=== PATIENT | male | born 1955 | race Caucasian/White ===

== ENCOUNTER → 2021-06-24 10:44 | Outpatient (CLI) | payer MEDICARE, OTHER, SELFPAY ==
[2021-06-24 11:23] LABS: Add Manual Diff / Slide Review NO; Basophils Absolute Auto 100 /uL (0-100); Basophils Percent Auto 1.2 % (0-2); Eosinophils Absolute Auto 400 /uL (0-450); Eosinophils Percent Auto 4.7 % (2-4); Hematocrit 43.2 % (41-53); Hemoglobin 14.4 g/dL (13.5-17.5); Lymphocytes Absolute Auto 2400 /uL (1100-4500); Lymphocytes Percent Auto 32.2 % (25-40); Mean Corpuscular HGB Conc 33.4 % (30-36); Mean Corpuscular Hemoglobin 26.9 PG (26-34); Mean Corpuscular Volume 80.7 fL (80-100); Monocytes Absolute Auto 500 /uL (0-900); Monocytes Percent Auto 7.3 % (3-14); Neutrophils Absolute Auto 4100 /uL (1500-7000); Neutrophils Percent Auto 54.6 % (50-75); Platelet Count 233 X10^3/uL (150-400); Red Blood Cell Count 5.36 X10^6/uL (4.5-5.9); White Blood Cell Count 7.6 X10^3/uL (4.5-11.0)
[2021-06-24 11:38] LABS: Hemoglobin A1C% w Est Avg Glu 9.4 % (4.0-6.0)
[2021-06-24 11:54] LABS: Alanine Aminotransferase 104 IU/L (<50); Albumin 4.4 g/dL (3.5-5.0); Albumin Globulin Ratio 1.7 (1.0-2.8); Alkaline Phosphatase 93 U/L (38-126); Aspartate Aminotransferase 65 IU/L (17-59); BUN Creatinine Ratio 16.4 (6-22); Bilirubin Total 0.7 mg/dL (0.2-1.3); Blood Urea Nitrogen 11 mg/dL (9-20); C-Reactive Protein Quant 1.9 mg/dL (<1.0); Calcium 9.6 mg/dL (8.4-10.2); Carbon Dioxide 27 mmol/L (22-32); Chloride 100 mmol/L (98-107); Cholesterol 261 mg/dL (140-199); Estimated Glomerular Filt Rate > 60.0 mL/min (>60); Globulin 2.6 g/dL (1.7-4.1); Glucose 253 mg/dL (80-110); HDL Cholesterol 50 mg/dL (40-60); HEMOLYSIS < 15 (0-50); LDL Cholesterol Calculated 132 mg/dL (<100); Potassium 4.1 mmol/L (3.4-5.1); Sodium 136 mmol/L (137-145); Triglycerides 395 mg/dL (35-150)
[2021-06-24 12:12] LABS: Free T4, Direct Thyroxine 1.26 ng/dL (0.78-2.19)
[2021-06-24 12:22] LABS: Prostate Specific Antigen Scrn 0.469 ng/mL (0.1-4.0)
[2021-06-24 12:26] LABS: Thyroid Stimulating Hormone 4.61 uIU/mL (0.47-4.68)
[2021-06-24 12:47] LABS: Erythrocyte Sedimentation Rate 17 MM/HR (0-15)
== END ==
PROVIDERS: PCP Internal Medicine; Referring Provider Internal Medicine; Visit Provider Internal Medicine
DX: E11.9 Type 2 diabetes mellitus without complications (principal); Z12.5 Encounter for screening for malignant neoplasm of prostate; I10 Essential (primary) hypertension; R59.1 Generalized enlarged lymph nodes
CPT/HCPCS: 36415; 80053; 80061; 83036; 84439; 84443; 85025; 85651; 86140; G0103

== ENCOUNTER → 2021-07-28 12:07 | Outpatient (CLI) | payer MEDICARE, OTHER, SELFPAY ==
[2021-07-28 14:05] LABS: COVID19 -Nasal RAPID Negative (Negative)
== END ==
PROVIDERS: PCP Internal Medicine; Visit Provider Physician Assistant
DX: Z20.822 Contact with and (suspected) exposure to COVID-19 (principal); R50.9 Fever, unspecified; R52 Pain, unspecified
CPT/HCPCS: 87635

== ENCOUNTER → 2021-08-20 13:38 | Outpatient (CLI) | payer MEDICARE, OTHER, SELFPAY ==
[2021-08-20 14:39] LABS: Hemoglobin A1C% w Est Avg Glu 8.6 % (4.0-6.0)
[2021-08-20 14:43] LABS: BUN Creatinine Ratio 16.5 (6-22); Blood Urea Nitrogen 13 mg/dL (9-20); Calcium 9.9 mg/dL (8.4-10.2); Carbon Dioxide 26 mmol/L (22-32); Chloride 100 mmol/L (98-107); Estimated Glomerular Filt Rate > 60.0 mL/min (>60); Glucose 255 mg/dL (80-110); HEMOLYSIS < 15 (0-50); Potassium 4.2 mmol/L (3.4-5.1); Sodium 137 mmol/L (137-145)
== END ==
PROVIDERS: PCP Internal Medicine; Referring Provider Internal Medicine; Visit Provider Internal Medicine
DX: E11.65 Type 2 diabetes mellitus with hyperglycemia (principal)
CPT/HCPCS: 36415; 80048; 83036

== ENCOUNTER → 2021-10-08 07:40 | Outpatient (CLI) | payer MEDICARE, OTHER, SELFPAY ==
[2021-10-08 08:46] LABS: BUN Creatinine Ratio 18.2 (6-22); Blood Urea Nitrogen 14 mg/dL (9-20); Calcium 9.4 mg/dL (8.4-10.2); Carbon Dioxide 24 mmol/L (22-32); Chloride 99 mmol/L (98-107); Estimated Glomerular Filt Rate > 60.0 mL/min (>60); Glucose 153 mg/dL (80-110); HEMOLYSIS 34 (0-50); Potassium 4.3 mmol/L (3.4-5.1); Sodium 135 mmol/L (137-145)
== END ==
PROVIDERS: PCP Internal Medicine; Referring Provider Internal Medicine; Visit Provider Internal Medicine
DX: E11.9 Type 2 diabetes mellitus without complications (principal); I10 Essential (primary) hypertension
CPT/HCPCS: 36415; 80048; 83036

== ENCOUNTER → 2022-01-06 11:38 | Outpatient (CLI) | payer MEDICARE, OTHER, SELFPAY ==
[2022-01-06 12:26] LABS: Blood Urea Nitrogen 16 mg/dL (9-20); Calcium 9.3 mg/dL (8.4-10.2); Carbon Dioxide 22 mmol/L (22-32); Chloride 103 mmol/L (98-107); Estimated Glomerular Filt Rate > 60 mL/min (>60); Glucose 156 mg/dL (80-110); HEMOLYSIS < 15 (0-50); Potassium 4.3 mmol/L (3.4-5.1); Sodium 137 mmol/L (137-145)
[2022-01-06 12:51] LABS: Hemoglobin A1C% w Est Avg Glu 6.7 % (4.0-6.0)
== END ==
PROVIDERS: PCP Internal Medicine; Referring Provider Internal Medicine; Visit Provider Internal Medicine
DX: E11.9 Type 2 diabetes mellitus without complications (principal); I10 Essential (primary) hypertension
CPT/HCPCS: 36415; 80048; 83036

== ENCOUNTER → 2022-04-07 11:09 | Outpatient (CLI) | payer MEDICARE, OTHER, SELFPAY ==
[2022-04-07 13:15] LABS: Hemoglobin A1C% w Est Avg Glu 6.5 % (4.0-6.0)
[2022-04-07 13:29] LABS: BUN Creatinine Ratio 16.3 (6-22); Blood Urea Nitrogen 15 mg/dL (9-20); Calcium 9.2 mg/dL (8.4-10.2); Carbon Dioxide 27 mmol/L (22-32); Chloride 101 mmol/L (98-107); Estimated Glomerular Filt Rate > 60 mL/min (>60); Glucose 130 mg/dL (80-110); HEMOLYSIS < 15 (0-50); Potassium 4.1 mmol/L (3.4-5.1); Sodium 139 mmol/L (137-145)
== END ==
PROVIDERS: PCP Internal Medicine; Referring Provider Internal Medicine; Visit Provider Internal Medicine
DX: I10 Essential (primary) hypertension (principal); E11.9 Type 2 diabetes mellitus without complications
CPT/HCPCS: 36415; 80048; 83036

== ENCOUNTER → 2022-05-16 14:08 | Outpatient (CLI) | payer MEDICARE, OTHER, SELFPAY ==
[2022-05-16 15:03] LABS: BUN Creatinine Ratio 16.3 (6-22); Blood Urea Nitrogen 13 mg/dL (9-20); Calcium 9.2 mg/dL (8.4-10.2); Carbon Dioxide 26 mmol/L (22-32); Chloride 98 mmol/L (98-107); Estimated Glomerular Filt Rate > 60 mL/min (>60); Glucose 193 mg/dL (80-110); HEMOLYSIS < 15 (0-50); Potassium 3.5 mmol/L (3.4-5.1); Sodium 135 mmol/L (137-145)
== END ==
PROVIDERS: PCP Internal Medicine; Referring Provider Internal Medicine; Visit Provider Internal Medicine
DX: I10 Essential (primary) hypertension (principal)
CPT/HCPCS: 36415; 80048

== ENCOUNTER → 2022-05-19 14:42 | Outpatient (CLI) | payer MEDICARE, OTHER, SELFPAY ==
[2022-05-19 15:29] LABS: COVID19 -Nasal RAPID Negative (Negative)
== END ==
PROVIDERS: PCP Internal Medicine; Referring Provider Internal Medicine; Visit Provider Internal Medicine
DX: Z20.822 Contact with and (suspected) exposure to COVID-19 (principal)
CPT/HCPCS: 87635; C9803

== ENCOUNTER → 2022-05-20 13:18 | Outpatient (CLI) | payer MEDICARE, OTHER, SELFPAY ==
--- NOTE | 2022-05-25 09:14 | PM.PFT.1 ---
Pulmonary Function Test Referral & Results Date Patient Seen: 05/20/22 Requesting provider: Kurtis Jennings Results: The spirometry demonstrates an FVC of 2.59 L which is 72% of predicted. The FEV1 was measured at 2.17 L which is 81% of predicted. The FEV1/FVC ratio was 84 which is 113% of predicted. Following the administration of bronchodilator there was no appreciable change. Lung volumes show an SVC of 2.72 L which is 72% of predicted. The diffusing capacity was measured at 26.97 which is 111% of predicted. The maximum voluntary ventilation was normal Interpretation: This study demonstrates possibly very mild obstructive lung disease based on minimal reduction FEV1 although FEV1/FVC ratio is preserved and shape a flow volume loop fails to demonstrate any significant obstructive lung disease and there is no benefit following bronchodilator Lung volumes are minimally reduced suggesting very mild restrictive lung disease which probably explains the abnormality in the FEV1 above Diffusing capacity is normal Clinical correlation suggested
== END ==
PROVIDERS: PCP Internal Medicine; Referring Provider Internal Medicine; Visit Provider Internal Medicine
DX: R06.02 Shortness of breath (principal); Z87.891 Personal history of nicotine dependence; J98.8 Other specified respiratory disorders
CPT/HCPCS: 94060; 94726; 94729

== ENCOUNTER → 2022-06-16 10:35 | Outpatient (CLI) | payer MEDICARE, OTHER, SELFPAY ==
--- NOTE | 2022-06-16 10:37 | DI.NM.S_ITS ---
PROCEDURE: NM AKI PERF SPECT R&S PHARM Rest and pharmacological stress myocardial perfusion SPECT with gated imaging and ejection fraction RADIOPHARMACEUTICAL: 25.8 mCi Tc-99m tetrafosmin IV at rest and 25.0 mCi Tc-99m tetrafosmin IV at peak effect of pharmacological stress. [id number] was performed. INDICATIONS: Shortness of Breath TECHNIQUE: Radiopharmaceutical was injected at peak stress test, and also at rest. SPECT images were obtained. SPECT myocardial perfusion images were displayed in short axis, horizontal long axis, and vertical long axis views. Gated images were reviewed using [employer] software. COMPARISON: None. CARDIAC STRESS: A pharmacologic stress test was performed under the supervision of an attending staff, using an infusion of regadenoson. Hemodynamic data: There is normal blood pressure and heart rate response to pharmacologic stress. Symptoms: None reported. EKG: Unable to assess for diagnostic changes of ischemia with pharmacologic stress. FINDINGS: Raw data: There is good myocardial uptake of radiotracer. No significant motion artifacts. Djin-rt-jxulj ratio is 0.28 (normal is less than 0.38 for tetrafosmin tracer). Left ventricle function: Gated images demonstrate hypokinesis of the basal to mid inferior wall. No segmental wall motion abnormalities. No transient ischemic dilation; TID is 1.14 (normal less than 1.3). Left ventricle resting end diastolic volume is 111 mL. Left ventricle stress ejection fraction is 63%; normal range is above 45%. Myocardial perfusion: There is a large size, moderate to severe intensity mostly fixed inferior wall defect however there is some reversibility in the inferoapex. IMPRESSION: Abnormal study. Large size, moderate to severe intensity mostly fixed inferior wall defect does demonstrate some reversibility in the inferoapical region suggesting santana-infarct ischemia. There is associated inferior wall hypokinesis. Normal calculated left ventricular ejection fraction. Dictated by: Lety Carbone D.O. on 06/17/2022 at 16:02 Approved by: Lety Carbone D.O. on 06/17/2022 at 16:13
[2022-06-16 13:14] LABS: COVID19 -Nasal RAPID Negative (Negative)
--- NOTE | 2022-06-17 14:19 | PM.TREADMILL ---
Cardiac Stress Test Report Referral & Results Date Patient Seen: 06/17/22 Requesting provider: Kurtis Jennings Indication: Dyspnea with exertion Rest ECG: Unremarkable Procedure Note: After both written and verbal informed consent the patient had an IV started by the diagnostic imaging RN, and then was hooked up to the treadmill monitoring system. The Lexiscan material, and then the Cardiolite tracer, were administered sequentially. An additional 3 min was spent monitoring the patient while supine on the gurney. The patient had a normal response to all infused materials. Impression: Patient had normal response to infused materials as above, please see perfusion imaging report for details regarding possible ischemia Please note: Actual ECG tracings can be found in the PACS system.
== END ==
PROVIDERS: PCP Internal Medicine; Referring Provider Internal Medicine; Visit Provider Internal Medicine
DX: R94.39 Abnormal result of other cardiovascular function study (principal); R06.02 Shortness of breath; R06.00 Dyspnea, unspecified; Z20.822 Contact with and (suspected) exposure to COVID-19
CPT/HCPCS: 78452; 87635; 93017; A9502; J2785

== ENCOUNTER → 2022-06-30 12:19 | Outpatient (CLI) | payer MEDICARE, OTHER, SELFPAY ==
--- NOTE | 2022-06-30 12:20 | DI.ECHO.S_ITS ---
[facility] +---------+ : : [address] [place] : : : : [id number] : : : : Phone: [phone]---------+ Echocardiogram Report + + :Name: DANITZA THOMAS Study Date: 06/30/2022 Height: 63.5 in: :[facility] ReadingLocation: Weight: 270 lb : : Gender: Male BSA: 2.2 m2 : :: 1955 Age: 67 yrs BP: 152/84 mmHg: :Reason For Study: CORONARY ARTERY DISEASE : :Ordering Physician: PHILIP, : :ELDA Johnson Performed By: Josephine Graham : :Referring: ELDA PALACIOS : + + Interpretation Summary 1) Normal left ventricular thickness, size, wall motion, and systolic function (EF 60-65%). 2) Normal right ventricular size and function. 3) There is mild aortic stenosis (valve area 1.8cm2, mean gradient 9mmHg). 4) No prior Echo available for comparison. Procedure: A two-dimensional transthoracic echocardiogram with color flow and Doppler was performed. The study quality was technically difficult. There is no prior echocardiogram noted for this patient. A contrast injection of Definity was performed to improve assessment of LV function. The patient was in sinus rhythm with heart rates between 66-76 bpm during the exam. Left Ventricle: The left ventricle is normal in size and wall thickness. The ejection fraction is estimated to be 60-65%. Left ventricular systolic function appears normal without focal wall motion abnormalities. Diastolic function could not be accurately assessed due to contradictory data. Right Ventricle: The right ventricle is normal in size and function. Atria: The left atrial size is normal. Right atrial size is normal. There is no Doppler evidence for an interatrial shunt. Mitral Valve: The mitral valve is not well visualized. There is trace mitral regurgitation. Aortic Valve: The aortic valve is not well visualized. The aortic valve is mildly calcified. There is mild aortic valve sclerosis. The peak aortic velocity is 2.07 m/sec. The aortic valve mean gradient is 8.9 mmHg. The calculated aortic valve area is 1.8 cm2. There is mild aortic stenosis. No aortic regurgitation is present. Tricuspid Valve: The tricuspid valve is not well visualized, but is grossly normal. There is trace tricuspid regurgitation. Pulmonary artery pressures cannot be estimated because of the lack of a measurable TR jet velocity. Pulmonic Valve: The pulmonic valve is not well seen, but is grossly normal. There is no pulmonic valvular regurgitation. Great Vessels: The aortic root is normal size. The dimensions of the ascending aorta are normal. The IVC is of normal diameter and collapses greater than 50% with a sniff. This suggests a low right atrial pressure of 3 mm Hg. Pericardium/ Pleura There is no pericardial effusion. There is no pleural effusion. MMode/2D Measurements & Calculations LVIDd: 4.6 cm LVOT diam: 2.1 cm LVIDs: 2.8 cm Ao root diam: 2.8 cm FS: 39.1 % asc Aorta Diam: 3.1 cm IVSd: 0.67 cm Ao Arch Diam (Prox Trans): 2.8 cm LVPWd: 0.98 cm LV osorio. diameter/BSA (cm/m^2): 2.1 LV sys. diameter/BSA (cm/m^2): 1.3 LA A2 area: 17.8 cm2 RA long axis: 4.5 cm LA A4 area: 17.2 cm2 RA area: 14.6 cm2 LA length (vol): 5.8 cm RA vol: 40.5 ml LA vol: 44.3 ml RA : 18.3 ml/m2 LA vol index: 20.1 ml/m2 IVC diam: 1.2 cm RVD1 (basal): 3.3 cm TAPSE: 2.0 cm Doppler Measurements & Calculations Ao V2 max: 207.4 cm/sec LVOT Max Erick: 109.7 cm/sec Ao V2 mean: 137.9 cm/sec LV V1 max P.8 mmHg Ao max P.2 mmHg LV V1 VTI: 24.7 cm Ao mean P.9 mmHg POP(I,D): 2.1 cm2 Ao V2 VTI: 41.5 cm POP(V,D): 1.8 cm2 sev ratio: 0.59 POP indexed to BSA (cm^2/m^2): 0.93 MV E max erick: 89.6 cm/sec PA V2 max: 99.9 cm/sec MV A max erick: 121.9 cm/sec PA V2 mean: 69.6 cm/sec MV E/A: 0.73 PA mean P.2 mmHg Med Peak E' Erick: 5.6 cm/sec PA pr(Accel): 43.0 mmHg E/E' med: 16.1 Lat Peak E' Erick: 6.5 cm/sec E/E' lat: 13.7 E/e' average: 14.9 MV dec time: 0.25 sec MVA(VTI): 2.6 cm2 MV V2 mean: 71.1 cm/sec SV(LVOT): 85.1 ml MV mean P.4 mmHg MV V2 VTI: 32.5 cm Reading Physician:05:06 PM
== END ==
PROVIDERS: PCP Internal Medicine; Referring Provider Internal Medicine; Visit Provider Internal Medicine
DX: I35.0 Nonrheumatic aortic (valve) stenosis (principal); I25.10 Atherosclerotic heart disease of native coronary artery without angina pectoris; I10 Essential (primary) hypertension; E11.9 Type 2 diabetes mellitus without complications
CPT/HCPCS: C8929; Q9957

== ENCOUNTER → 2022-12-02 11:24 | Outpatient (CLI) | payer MEDICARE, OTHER, SELFPAY ==
[2022-12-02 12:45] LABS: BUN Creatinine Ratio 19.3 (6-22); Blood Urea Nitrogen 16 mg/dL (9-20); Calcium 9.4 mg/dL (8.4-10.2); Carbon Dioxide 24 mmol/L (22-32); Chloride 99 mmol/L (98-107); Cholesterol 131 mg/dL (140-199); Estimated Glomerular Filt Rate > 60 mL/min (>60); Glucose 172 mg/dL (80-110); HDL Cholesterol 41 mg/dL (40-60); HEMOLYSIS < 15 (0-50); LDL Cholesterol Calculated 24 mg/dL (<100); Potassium 4.2 mmol/L (3.4-5.1); Sodium 136 mmol/L (137-145); Triglycerides 330 mg/dL (35-150)
[2022-12-02 13:14] LABS: Hemoglobin A1C% w Est Avg Glu 7.2 % (4.0-6.0)
== END ==
PROVIDERS: PCP Internal Medicine; Referring Provider Internal Medicine; Visit Provider Internal Medicine
DX: E11.9 Type 2 diabetes mellitus without complications (principal); I10 Essential (primary) hypertension
CPT/HCPCS: 36415; 80048; 80061; 83036

== ENCOUNTER → 2023-01-12 09:48 | Outpatient (CLI) | payer MEDICARE, OTHER, SELFPAY ==
[2023-01-12 11:21] LABS: Add Manual Diff / Slide Review NO; Basophils Absolute Auto 100 /uL (0-100); Basophils Percent Auto 0.8 % (0-2); Eosinophils Absolute Auto 400 /uL (0-450); Eosinophils Percent Auto 4.4 % (2-4); Hematocrit 40.3 % (41-53); Hemoglobin 13.7 g/dL (13.5-17.5); Lymphocytes Absolute Auto 2600 /uL (1100-4500); Lymphocytes Percent Auto 30.4 % (25-40); Mean Corpuscular HGB Conc 34.1 % (30-36); Mean Corpuscular Hemoglobin 26.9 PG (26-34); Mean Corpuscular Volume 78.8 fL (80-100); Monocytes Absolute Auto 600 /uL (0-900); Neutrophils Absolute Auto 4900 /uL (1500-7000); Neutrophils Percent Auto 57.4 % (50-75); Platelet Count 246 X10^3/uL (150-400); Red Blood Cell Count 5.12 X10^6/uL (4.5-5.9); Red Cell Distribution Width 14.5 % (11.6-14.8); White Blood Cell Count 8.5 X10^3/uL (4.5-11.0)
[2023-01-12 11:37] LABS: INR 1.1 (0.9-1.3); Prothrombin Time 12.1 SECONDS (10.1-12.7)
[2023-01-12 11:55] LABS: Blood Urea Nitrogen 20 mg/dL (9-20); Calcium 9.4 mg/dL (8.4-10.2); Carbon Dioxide 26 mmol/L (22-32); Chloride 98 mmol/L (98-107); Estimated Glomerular Filt Rate > 60 mL/min (>60); Glucose 211 mg/dL (80-110); HEMOLYSIS < 15 (0-50); Potassium 3.8 mmol/L (3.4-5.1); Sodium 136 mmol/L (137-145)
[2023-01-12 12:19] LABS: Free T4, Direct Thyroxine 1.35 ng/dL (0.78-2.19)
[2023-01-12 12:33] LABS: Thyroid Stimulating Hormone 3.65 uIU/mL (0.47-4.68)
== END ==
PROVIDERS: PCP Internal Medicine; Referring Provider Internal Medicine Cardiovascular Disease; Visit Provider Internal Medicine Cardiovascular Disease
DX: R94.39 Abnormal result of other cardiovascular function study (principal); E78.5 Hyperlipidemia, unspecified
CPT/HCPCS: 36415; 80048; 80053; 84439; 84443; 85025; 85610

== ENCOUNTER → 2023-03-24 11:03 | Outpatient (CLI) | payer MEDICARE, OTHER, SELFPAY ==
[2023-03-24 12:21] LABS: BUN Creatinine Ratio 12.9 (6-22); Blood Urea Nitrogen 13 mg/dL (9-20); Calcium 8.8 mg/dL (8.4-10.2); Carbon Dioxide 28 mmol/L (22-32); Chloride 104 mmol/L (98-107); Estimated Glomerular Filt Rate > 60 mL/min (>60); Glucose 114 mg/dL (80-110); HEMOLYSIS < 15 (0-50); Potassium 4.7 mmol/L (3.4-5.1); Sodium 138 mmol/L (137-145)
[2023-03-25 08:39] LABS: Labcorp Hemoglobin (Hb) A1c 5.7 % (4.8-5.6)
== END ==
PROVIDERS: PCP Internal Medicine; Referring Provider Internal Medicine; Visit Provider Internal Medicine
DX: I10 Essential (primary) hypertension (principal); E11.9 Type 2 diabetes mellitus without complications
CPT/HCPCS: 36415; 80048; 83036

== ENCOUNTER → 2023-03-27 16:50 | Outpatient (CLI) | payer MEDICARE, OTHER, SELFPAY ==
[2023-03-27 17:55] LABS: Add Manual Diff / Slide Review NO; Basophils Absolute Auto 100 /uL (0-100); Basophils Percent Auto 1.4 % (0-2); Eosinophils Absolute Auto 200 /uL (0-450); Hematocrit 31.7 % (41-53); Hemoglobin 10.5 g/dL (13.5-17.5); Lymphocytes Absolute Auto 1900 /uL (1100-4500); Lymphocytes Percent Auto 24.8 % (25-40); Mean Corpuscular HGB Conc 33.1 % (30-36); Mean Corpuscular Hemoglobin 27.2 PG (26-34); Mean Corpuscular Volume 82.1 fL (80-100); Monocytes Absolute Auto 800 /uL (0-900); Monocytes Percent Auto 10.6 % (3-14); Neutrophils Absolute Auto 4500 /uL (1500-7000); Neutrophils Percent Auto 60.2 % (50-75); Platelet Count 425 X10^3/uL (150-400); Red Blood Cell Count 3.86 X10^6/uL (4.5-5.9); Red Cell Distribution Width 17.8 % (11.6-14.8); White Blood Cell Count 7.5 X10^3/uL (4.5-11.0)
[2023-03-27 18:25] LABS: BUN Creatinine Ratio 13.3 (6-22); Blood Urea Nitrogen 16 mg/dL (9-20); Calcium 9.3 mg/dL (8.4-10.2); Carbon Dioxide 28 mmol/L (22-32); Chloride 99 mmol/L (98-107); Estimated Glomerular Filt Rate > 60 mL/min (>60); Glucose 103 mg/dL (80-110); HEMOLYSIS < 15 (0-50); Magnesium 2.1 mg/dL (1.6-2.3); Potassium 4.3 mmol/L (3.4-5.1); Sodium 137 mmol/L (137-145)
== END ==
PROVIDERS: PCP Internal Medicine; Referring Provider Internal Medicine; Visit Provider Internal Medicine
DX: D64.9 Anemia, unspecified (principal); I10 Essential (primary) hypertension; R00.0 Tachycardia, unspecified
CPT/HCPCS: 36415; 80048; 83735; 85025

== ENCOUNTER 2023-07-31 14:15 | Outpatient (RCR) | payer MEDICARE, OTHER, SELFPAY | END 2023-07-31 16:15 | LOC: CAR 14:15 | PROVIDERS: PCP Internal Medicine; Referring Provider Thoracic Surgery (Cardiothoracic Vascular Surgery); Visit Provider Thoracic Surgery (Cardiothoracic Vascular Surgery) | DX: Z95.1 Presence of aortocoronary bypass graft (principal) | CPT/HCPCS: 93798 ==

== ENCOUNTER → 2023-08-26 10:11 | Outpatient (CLI) | payer MEDICARE, OTHER, SELFPAY ==
[2023-08-26 11:39] LABS: Alanine Aminotransferase 28 IU/L (<50); Albumin 4.4 g/dL (3.5-5.0); Albumin Globulin Ratio 1.4 (1.0-2.8); Alkaline Phosphatase 90 U/L (38-126); Aspartate Aminotransferase 22 IU/L (17-59); BUN Creatinine Ratio 21.6 (6-22); Bilirubin Total 0.7 mg/dL (0.2-1.3); Blood Urea Nitrogen 25 mg/dL (9-20); Calcium 9.4 mg/dL (8.4-10.2); Carbon Dioxide 26 mmol/L (22-32); Chloride 99 mmol/L (98-107); Estimated Glomerular Filt Rate > 60 mL/min (>60); Globulin 3.1 g/dL (1.7-4.1); Glucose 150 mg/dL (80-110); HEMOLYSIS < 15 (0-50); Potassium 4.3 mmol/L (3.4-5.1); Sodium 137 mmol/L (137-145); Total Protein 7.5 g/dL (6.3-8.2)
[2023-08-26 11:56] LABS: Creatinine Urine Random 185.1 mg/dL
[2023-08-26 12:00] LABS: Hemoglobin A1C% w Est Avg Glu 6.2 % (4.0-6.0); Microalbumi Creatinin Ratio Ur 42.6 ug/mg CR (<30); Microalbumin Urine Random 7.9 mg/dL (0-1.6)
== END ==
PROVIDERS: PCP Internal Medicine; Referring Provider Internal Medicine; Visit Provider Internal Medicine
DX: E11.9 Type 2 diabetes mellitus without complications (principal); I10 Essential (primary) hypertension
CPT/HCPCS: 36415; 80053; 82043; 82570; 83036

== ENCOUNTER → 2023-12-19 16:15 | Outpatient (CLI) | payer MEDICARE, OTHER, SELFPAY ==
--- NOTE | 2023-12-19 16:17 | DI.RAD.S_ITS ---
PROCEDURE: XR CHEST 2V INDICATIONS: chest pain TECHNIQUE: 2 views of the chest were acquired. COMPARISON: None. FINDINGS: Surgical changes and devices: Midline sternal wires Lungs and pleura: Lungs are clear. No pleural effusions or pneumothorax. Mediastinum: Mediastinal contours are normal. Heart size is normal. Bones and chest wall: No suspicious bony abnormalities. Soft tissues appear unremarkable. IMPRESSION: No acute cardiopulmonary abnormality is seen. Approved by: Philip Espinoza M.D. on 12/19/2023 at 19:22
== END ==
LOC: RAD 16:17
PROVIDERS: PCP Internal Medicine; Referring Provider Internal Medicine; Visit Provider Internal Medicine
DX: R07.9 Chest pain, unspecified (principal)
CPT/HCPCS: 71046

== ENCOUNTER → 2024-01-08 10:57 | Outpatient (CLI) | payer MEDICARE, OTHER, SELFPAY ==
[2024-01-08 11:32] LABS: Estimated Glomerular Filt Rate > 60 mL/min (>60)
== END ==
PROVIDERS: Radiology Diagnostic Radiology; PCP Internal Medicine; Referring Provider Internal Medicine; Visit Provider Internal Medicine
DX: R07.9 Chest pain, unspecified (principal)
CPT/HCPCS: 36415; 82565

== ENCOUNTER → 2024-01-08 11:12 | Outpatient (CLI) | payer MEDICARE, OTHER, SELFPAY ==
--- NOTE | 2024-01-08 11:13 | DI.CT.S_ITS ---
PROCEDURE: CT CHEST W CON INDICATIONS: Chest Pain TECHNIQUE: After the administration of intravenous contrast, 5 mm thick sections acquired from the pulmonary apices to the posterior costophrenic angles. 1 mm axial lung, 5 mm thick coronal and sagittal reformats and 7 mm axial MIP were acquired. For radiation dose reduction, the following was used: automated exposure control, adjustment of mA and/or kV according to patient size. COMPARISON: None. FINDINGS: Image quality: Diagnostic Lungs and pleura: Emphysematous changes. No dense consolidation or pleural effusion. No solid pulmonary nodule requiring follow-up per latest guidelines. Scattered scarring and atelectasis. Micro nodules, such as right upper lobe nodule image 4/40 could be followed on optional basis if the patient is considered high risk. Mediastinum, heart, and esophagus: CABG changes. Normal heart size. There are coronary calcifications. No pathologic lymph nodes by size criteria. Chest wall and thyroid: Gynecomastia. Sternotomy midline lucency and wires are present Scarring is suspected granulation tissue is seen overlying the sternotomy, slightly asymmetric toward the left side. A BB marker is seen overlying the left pectoralis, with minimal subcutaneous edema. No drainable fluid collection or mass. Prominent fat is seen anterior to the xiphoid. Upper abdomen: No gross abnormality, partially visualized There is a 1.2 cm left adrenal nodule. Bones: Degenerative changes. IMPRESSION: Midline sternotomy lucency. Sternotomy wires in place. No discrete fluid collection or mass. Mild inflammatory fat stranding and possible scarring and granulation tissue is seen under the skin overlying the sternotomy, slightly asymmetric toward the left. This is just medial to the BB marker, which overlies the left pectoralis muscle. Other findings as above. 1.2 cm left adrenal nodule, which is usually an adenoma. Consider adrenal protocol imaging for confirmation. Dictated by: Jayme Bustillos M.D. on 01/08/2024 at 14:40 Approved by: Jayme Bustillos M.D. on 01/08/2024 at 14:46
== END ==
PROVIDERS: PCP Internal Medicine; Referring Provider Internal Medicine; Visit Provider Internal Medicine
DX: R07.9 Chest pain, unspecified (principal); E27.9 Disorder of adrenal gland, unspecified; I25.10 Atherosclerotic heart disease of native coronary artery without angina pectoris; Z95.1 Presence of aortocoronary bypass graft
CPT/HCPCS: 36415; 71260; 82565; Q9967

== ENCOUNTER → 2024-02-28 10:44 | Outpatient (CLI) | payer MEDICARE, OTHER, SELFPAY ==
[2024-02-28 12:21] LABS: Hemoglobin A1C% w Est Avg Glu 6.9 % (4.0-6.0)
[2024-02-28 12:43] LABS: Alanine Aminotransferase 34 IU/L (<50); Albumin 4.3 g/dL (3.5-5.0); Albumin Globulin Ratio 1.7 (1.0-2.8); Alkaline Phosphatase 96 U/L (38-126); Aspartate Aminotransferase 27 IU/L (17-59); BUN Creatinine Ratio 21.2 (6-22); Bilirubin Total 0.5 mg/dL (0.2-1.3); Blood Urea Nitrogen 24 mg/dL (9-20); Calcium 9.4 mg/dL (8.4-10.2); Carbon Dioxide 25 mmol/L (22-32); Chloride 103 mmol/L (98-107); Cholesterol 238 mg/dL (140-199); Estimated Glomerular Filt Rate > 60 mL/min (>60); Globulin 2.5 g/dL (1.7-4.1); Glucose 173 mg/dL (80-110); HDL Cholesterol 45 mg/dL (40-60); HEMOLYSIS < 15 (0-50); Potassium 4.5 mmol/L (3.4-5.1); Sodium 137 mmol/L (137-145); Total Protein 6.8 g/dL (6.3-8.2); Triglycerides 427 mg/dL (35-150)
[2024-02-28 13:08] LABS: Prostate Specific Antigen Scrn 0.912 ng/mL (0.1-4.0)
== END ==
LOC: LAB 10:46
PROVIDERS: PCP Internal Medicine; Referring Provider Internal Medicine; Visit Provider Internal Medicine
DX: Z12.5 Encounter for screening for malignant neoplasm of prostate (principal); E11.9 Type 2 diabetes mellitus without complications; I10 Essential (primary) hypertension; I25.10 Atherosclerotic heart disease of native coronary artery without angina pectoris
CPT/HCPCS: 36415; 80053; 80061; 83036; G0103

== ENCOUNTER → 2024-02-29 14:09 | Outpatient (CLI) | payer MEDICARE, OTHER, SELFPAY ==
[2024-03-04 19:38] LABS: Fecal Immunochemical Test Negative (Negative)
== END ==
PROVIDERS: PCP Internal Medicine; Visit Provider Internal Medicine
DX: Z12.11 Encounter for screening for malignant neoplasm of colon (principal)
CPT/HCPCS: 82274

== ENCOUNTER → 2024-07-01 13:42 | Outpatient (CLI) | payer MEDICARE, OTHER, SELFPAY ==
[2024-07-01 15:10] LABS: Hemoglobin A1C% w Est Avg Glu 6.5 % (4.0-6.0)
[2024-07-01 15:42] LABS: Alanine Aminotransferase 56 IU/L (<50); Albumin 4.4 g/dL (3.5-5.0); Albumin Globulin Ratio 1.8 (1.0-2.8); Alkaline Phosphatase 101 U/L (38-126); Aspartate Aminotransferase 44 IU/L (17-59); BUN Creatinine Ratio 16.2 (6-22); Bilirubin Total 0.7 mg/dL (0.2-1.3); Blood Urea Nitrogen 18 mg/dL (9-20); Calcium 9.8 mg/dL (8.4-10.2); Carbon Dioxide 24 mmol/L (22-32); Chloride 101 mmol/L (98-107); Cholesterol 233 mg/dL (140-199); Estimated Glomerular Filt Rate > 60 mL/min (>60); Globulin 2.4 g/dL (1.7-4.1); Glucose 140 mg/dL (80-110); HDL Cholesterol 44 mg/dL (40-60); HEMOLYSIS < 15 (0-50); LDL Cholesterol Calculated 131 mg/dL (<100); Potassium 4.7 mmol/L (3.4-5.1); Sodium 136 mmol/L (137-145); Total Protein 6.8 g/dL (6.3-8.2); Triglycerides 288 mg/dL (35-150)
[2024-07-01 15:53] LABS: LDL Cholesterol Direct 145 mg/dL (<100)
== END ==
PROVIDERS: PCP Internal Medicine; Referring Provider Internal Medicine; Visit Provider Internal Medicine
DX: E11.21 Type 2 diabetes mellitus with diabetic nephropathy (principal); I10 Essential (primary) hypertension; E78.1 Pure hyperglyceridemia
CPT/HCPCS: 36415; 80053; 80061; 83036; 83721

== ENCOUNTER → 2024-09-19 10:54 | Outpatient (CLI) | payer MEDICARE, OTHER, SELFPAY ==
[2024-09-19 12:44] LABS: Magnesium 1.6 mg/dL (1.6-2.3)
== END ==
PROVIDERS: PCP Internal Medicine; Referring Provider Physician Assistant; Visit Provider Physician Assistant
DX: E11.69 Type 2 diabetes mellitus with other specified complication (principal); R00.2 Palpitations; E78.5 Hyperlipidemia, unspecified
CPT/HCPCS: 36415; 83735

== ENCOUNTER → 2024-10-22 | Outpatient (CLI) | payer MEDICARE, OTHER, SELFPAY ==
--- NOTE | 2024-10-23 14:45 | DI.NM.S_ITS ---
DATE OF SERVICE: 10/23/2024 PERFUSION STUDY TEST INDICATIONS: History of chest pain with known history of bypass surgery, hypertension and hyperlipidemia. RADIOPHARMACEUTICAL: 25.1 millicurie technetium-99m Myoview IV was injected at stress and 25.5 millicurie technetium-99m Myoview IV was injected at rest. CARDIAC STRESS: The patient initially attempted walking on treadmill. He walked on Tino protocol for 2 minutes and 50 seconds only, 4.6 METS of workload, achieved 81% of target heart rate with maximum heart rate 123. However, the patient felt significant fatigue and dyspnea and was unable to walk on treadmill; hence it was discontinued. The patient was given IV Lexiscan as per protocol. The patient remained hemodynamically stable. During exercise, peak blood pressure was 154/88 and resting blood pressure 142/80. Achieved 4.6 METS of workload. Baseline rhythm sinus with nonspecific ST-T changes. During exercise and as well as Lexiscan, no new significant ischemic changes or arrhythmias. No chest discomfort. RAW DATA: There is a significantly increased diaphragmatic activity including gut shadow encroaching the inferior border of the heart as well as soft tissue shadow affecting the anterior portion of the heart. The patient's weight is 287 pounds. GATED STUDY: Resting LV ejection fraction 70% and stress LV ejection fraction 72% without any obvious wall motion abnormalities. Resting end- diastolic volume 104 mL. TID ratio 0.87, which is within normal limits. Lung/heart ratio 0.44, which is within normal limits. MYOCARDIAL PERFUSION SCAN: Stress supine, resting supine and stress prone images were compared to each other. Stress supine and resting supine images revealed moderate-size, moderately decreased perfusion of inferior wall extending into the inferior apex as well as mid anterior wall, which got completely resolved during stress prone images suggestive of tissue attenuation artifact. Stress prone images revealed normal myocardial perfusion. CONCLUSION: This is a normal myocardial perfusion study with evidence of significant tissue attenuation artifact, which got resolved during stress prone images. Preserved left ventricular function. Significantly diminished exercise tolerance. Normal hemodynamic response. No chest pain; however, felt fatigue and shortness of breath during exercise. In view of normal myocardial perfusion, preserved left ventricular function. Overall, low-risk myocardial perfusion scan. Correlate clinically. Abiel Burns - ELIANA/leoncio/DEAN doc#: [id number]/job#: [id number] dd: 10/23/2024 13:03:00 dt: 10/23/2024 13:56:00 DICTATING MD/COPIES TO: Cristhian Menezes MD COPIES MNE: RIANA;
== END ==
LOC: NUCM 15:15
PROVIDERS: PCP Internal Medicine; Referring Provider Physician Assistant; Visit Provider Physician Assistant
DX: I25.10 Atherosclerotic heart disease of native coronary artery without angina pectoris (principal); I10 Essential (primary) hypertension; E78.5 Hyperlipidemia, unspecified; R07.9 Chest pain, unspecified; Z95.1 Presence of aortocoronary bypass graft
CPT/HCPCS: 78452; 93017; A9502; J2785

== ENCOUNTER → 2024-12-30 08:51 | Outpatient (CLI) | payer MEDICARE, OTHER, SELFPAY ==
[2024-12-30 09:56] LABS: Hemoglobin A1C% w Est Avg Glu 6.2 % (4.0-6.0)
[2024-12-30 10:11] LABS: Alanine Aminotransferase 55 IU/L (<50); Albumin 4.3 g/dL (3.5-5.0); Albumin Globulin Ratio 1.8 (1.0-2.8); Alkaline Phosphatase 94 U/L (38-126); Aspartate Aminotransferase 36 IU/L (17-59); Bilirubin Total 0.7 mg/dL (0.2-1.3); Blood Urea Nitrogen 23 mg/dL (9-20); Calcium 9.5 mg/dL (8.4-10.2); Carbon Dioxide 20 mmol/L (22-32); Chloride 102 mmol/L (98-107); Cholesterol 225 mg/dL (140-199); Estimated Glomerular Filt Rate > 60 mL/min (>60); Globulin 2.4 g/dL (1.7-4.1); Glucose 165 mg/dL (80-110); HDL Cholesterol 35 mg/dL (40-60); HEMOLYSIS < 15 (0-50); LDL Cholesterol Calculated 110 mg/dL (<100); Potassium 4.8 mmol/L (3.4-5.1); Sodium 135 mmol/L (137-145); Total Protein 6.7 g/dL (6.3-8.2); Triglycerides 399 mg/dL (35-150)
[2024-12-30 10:22] LABS: LDL Cholesterol Direct 127 mg/dL (<100)
[2024-12-30 10:26] LABS: Creatinine Urine Random 135.02 mg/dL
[2024-12-30 10:35] LABS: Microalbumin Urine Random 2.1 mg/dL (0-1.6)
== END ==
PROVIDERS: PCP Internal Medicine; Referring Provider Internal Medicine; Visit Provider Internal Medicine
DX: E11.21 Type 2 diabetes mellitus with diabetic nephropathy (principal); E78.1 Pure hyperglyceridemia; I10 Essential (primary) hypertension; E66.01 Morbid (severe) obesity due to excess calories
CPT/HCPCS: 36415; 80053; 80061; 82043; 82570; 83036; 83721

== ENCOUNTER → 2024-12-31 15:02 | Outpatient (CLI) | payer MEDICARE, OTHER, SELFPAY ==
--- NOTE | 2024-12-31 15:03 | DI.CT.S_ITS ---
PROCEDURE: CT CHEST WO CON INDICATIONS: Pulmonary Nodule Follow Up TECHNIQUE: Noncontrast 2.0-2.5 mm thick sections acquired from the pulmonary apices to the posterior costophrenic angles. 7 mm thick axial MIP and 5 mm coronal and sagittal reformats were then acquired. For radiation dose reduction, the following was used: automated exposure control, adjustment of mA and/or kV according to patient size. COMPARISON: [facility], CT, CT CHEST W CON, 01/08/2024, 11:43. FINDINGS: Image quality: Diagnostic. Thyroid: Within normal limits. Cardiac: Heart size within normal limits. No pericardial effusion. Mild-moderate triple-vessel coronary artery calcifications. Aorta: Thoracic aortic diameter within normal limits. Moderate atherosclerosis. Pulmonary Artery: Main pulmonary artery diameter within normal limits. Lungs: No focal lung consolidation. Unchanged right upper lobe apical segment 2 mm solid nodule () Pleura: No pneumothorax or pleural effusion. Airways: The trachea and mainstem bronchi are patent. Lymph Nodes: No mediastinal, hilar, or axillary lymphadenopathy. Esophagus: Within normal limits. Bones: No acute osseous abnormality. Median sternotomy wires. Diffuse idiopathic skeletal hyperostosis of the thoracic spine (). Upper Abdomen: Hepatic steatosis. IMPRESSION: 1. Unchanged right upper lobe apical segment 2 mm solid nodule. No further follow-up necessary. 2. Hepatic steatosis. Fleischner Society criteria for SOLID lung nodule followup. Nodule size (mm)Low-risk patientHigh-risk patient<6 (single or multiple)No routine followup.Optional CT at 12 months. 6-8 (single or multiple)CT at 6-12 months, then optional CT at 18-24 mo.CT at 6-12 months, then CT at 18-24 months. >8 (single)CT at 3 months, PET-CT, or biopsy. Same as for low-risk pts. >8 (multiple)CT at 3-6 months, then optional CT at 18-24 mo.CT at 3-6 months, then CT at 18-24 months. Fleischner Society criteria for SUB-SOLID lung nodule followup. Solitary pure ground-glass nodules<6 mm (ground glass or part solid)No followup needed. 6 mm or larger (ground glass)CT at 6-12 months to confirm persistence, then CT every 2 years until 5 years.6 mm or larger (part solid)CT at 3-6 months to confirm persistence, then annual CT until 5 years if unchanged and solid component remains <6 mm. Multiple sub-solid nodules<6 mmCT at 3-6 months, then CT consider at 2 & 4 years for high risk patients. [address] at 3-6 months. Subsequent management based on most suspicious lesions. Recommendations do not apply to lung cancer screening, patients with immunosuppression, or patients with known primary cancer. Dictated by: Christophe Osborne M.D. on 01/02/2025 at 14:58 Approved by: Christophe Osborne M.D. on 01/02/2025 at 15:09
== END ==
PROVIDERS: PCP Internal Medicine; Referring Provider Internal Medicine; Visit Provider Internal Medicine
DX: R91.8 Other nonspecific abnormal finding of lung field (principal); I25.10 Atherosclerotic heart disease of native coronary artery without angina pectoris; I70.0 Atherosclerosis of aorta; K76.0 Fatty (change of) liver, not elsewhere classified
CPT/HCPCS: 71250

== ENCOUNTER → 2025-01-09 10:53 | Outpatient (CLI) | payer MEDICARE, OTHER, SELFPAY ==
[2025-01-10 13:11] LABS: Fecal Immunochemical Test Negative (Negative)
== END ==
PROVIDERS: PCP Internal Medicine; Referring Provider Internal Medicine; Visit Provider Internal Medicine
DX: Z12.11 Encounter for screening for malignant neoplasm of colon (principal)
CPT/HCPCS: 82274

== ENCOUNTER → 2025-03-27 12:22 | Outpatient (CLI) | payer MEDICARE, OTHER, SELFPAY ==
[2025-03-27 13:33] LABS: Blood Urea Nitrogen 28 mg/dL (9-20); Calcium 9.5 mg/dL (8.4-10.2); Carbon Dioxide 25 mmol/L (22-32); Chloride 98 mmol/L (98-107); Estimated Glomerular Filt Rate 56 mL/min (>60); Glucose 157 mg/dL (70-99); HEMOLYSIS < 15 (0-50); Magnesium 1.7 mg/dL (1.6-2.3); Potassium 4.6 mmol/L (3.4-5.1); Sodium 135 mmol/L (137-145)
== END ==
PROVIDERS: PCP Internal Medicine; Referring Provider Internal Medicine; Visit Provider Internal Medicine
DX: I10 Essential (primary) hypertension (principal); E66.01 Morbid (severe) obesity due to excess calories
CPT/HCPCS: 36415; 80048; 83735

== ENCOUNTER → 2025-07-02 10:29 | Outpatient (CLI) | payer MEDICARE, OTHER, SELFPAY ==
[2025-07-02 11:57] LABS: Hemoglobin A1C% w Est Avg Glu 6.2 % (4.0-6.0)
[2025-07-02 12:05] LABS: Alanine Aminotransferase 35 IU/L (<50); Albumin 4.0 g/dL (3.5-5.0); Albumin Globulin Ratio 1.6 (1.0-2.8); Alkaline Phosphatase 95 U/L (38-126); Blood Urea Nitrogen 20 mg/dL (9-20); Calcium 9.0 mg/dL (8.4-10.2); Carbon Dioxide 24 mmol/L (22-32); Chloride 102 mmol/L (98-107); Cholesterol 211 mg/dL (140-199); Estimated Glomerular Filt Rate > 60 mL/min (>60); Globulin 2.5 g/dL (1.7-4.1); Glucose 142 mg/dL (70-99); HDL Cholesterol 42 mg/dL (40-60); HEMOLYSIS < 15 (0-50); Potassium 4.5 mmol/L (3.4-5.1); Sodium 138 mmol/L (137-145); Total Protein 6.5 g/dL (6.3-8.2); Triglycerides 260 mg/dL (35-150)
== END ==
PROVIDERS: PCP Internal Medicine; Referring Provider Internal Medicine; Visit Provider Internal Medicine
DX: E11.9 Type 2 diabetes mellitus without complications (principal); I10 Essential (primary) hypertension; E78.1 Pure hyperglyceridemia
CPT/HCPCS: 36415; 80053; 80061; 83036; 83721